=== PATIENT | female | born 1990 | race Caucasian/White ===

== ENCOUNTER 2019-03-08 13:18 | Emergency (ER) | payer OTHER ==
[2019-03-08 14:07] LABS: BILIRUBIN,URINE NEGATIVE (NEGATIVE); GLUCOSE, URINE (UA) NEGATIVE (NEGATIVE); KETONES,URINE (UA) NEGATIVE (NEGATIVE); LEUKOCYTE ESTERASE, URINE NEGATIVE (NEGATIVE); NITRITE,URINE NEGATIVE (NEGATIVE); OCCULT BLOOD,URINE NEGATIVE (NEGATIVE); PROTEIN,URINE NEGATIVE (NEGATIVE); UROBILINOGEN,URINE 0.2 (NORMAL) E.U./dL (NORMAL)
[2019-03-08 14:17] LABS: CLARITY,URINE CLEAR (CLEAR); HCG UR QUAL NEGATIVE
--- NOTE | 2019-03-08 16:03 | ED Physician Documentation ---
PD HPI FEMALE - Stated complaint Stated Complaint: ABD PAIN - Chief complaint Chief Complaint: Abd Pain - History obtained from History obtained from: Patient - History of Present Illness Timing - onset: Today (this morning) Timing - details: Gradual onset, Still present (Worsening through the day. It started periumbilical and is now more to the right lower quadrant area.) Associated symptoms: Abdominal pain. No: Fever, Pelvic pain, Vaginal discharge, Genital sore/lesion, Dysuria, Urinary frequency Contributing factors: No: , Exposed to STD Similar symptoms before: Has not had sx before Recently seen: Not recently seen Review of Systems Constitutional: denies: Fever, Chills, Myalgias Nose: denies: Rhinorrhea / runny nose, Congestion Throat: denies: Sore throat Respiratory: denies: Cough GI: reports: Abdominal Pain, Nausea, Vomiting (once), Diarrhea (couple episodes loose stool today) : denies: Dysuria, Frequency Skin: denies: Rash, Lesions Musculoskeletal: denies: Neck pain, Back pain Neurologic: denies: Generalized weakness, Focal weakness, Numbness, Near syncope PD PAST MEDICAL HISTORY - Past Medical History Past Medical History: Yes Cardiovascular: None Respiratory: None Neuro: None GI: None FLORAL MERCHANDISER: None : None HEENT: None Psych: None Musculoskeletal: None Derm: None - Past Surgical History Past Surgical History: Yes /FLORAL MERCHANDISER: section - Present Medications Home Medications: Ambulatory Orders Medication Instructions Recorded Confirmed Naproxen 375 mg PO BID #15 tablet 03/08/19 Ondansetron Odt [Zofran] 4 mg TL Q6H PRN #10 tablet 03/08/19 Oxycodone HCl/Acetaminophen 1 each PO Q6H PRN #14 tablet 03/08/19 [Percocet 5-325 mg Tablet] - Allergies Allergies/Adverse Reactions: Allergies Allergy/AdvReac Type Severity Reaction Status Date / Time No Known Drug Allergies Allergy Verified 03/08/19 13:41 - Social History Does the pt smoke?: No Smoking Status: Never smoker Does the pt drink ETOH?: Yes Does the pt have substance abuse?: No - Immunizations Immunizations are current?: Yes - POLST Patient has POLST: No PD ED PE NORMAL - Vitals Vital signs reviewed: Yes - General General: Alert and oriented X 3, Well developed/nourished, Other (seems some uncomfortable. ) - HEENT HEENT: Pharynx benign - Neck Neck: Supple, no meningeal sign, No adenopathy - Cardiac Cardiac: RRR, No murmur - Respiratory Respiratory: Clear bilaterally - Abdomen Abdomen: Normal bowel sounds, Soft, Non distended, No organomegaly, Other (tender with guarding RLQ and periumbilical (at [place] mostly) with some percussion tender at that area. No rebound. ) Results - Vitals Vitals: Oxygen O2 Source Room air - Labs Labs: Laboratory Tests 03/08/19 03/08/19 03/08/19 14:00 16:45 16:45 WBC 7.7 RBC 4.24 Hgb 11.1 L Hct 34.7 L MCV 81.7 MCH 26.3 L MCHC 32.1 RDW 16.0 H Plt Count 252 MPV 9.0 Neut # (Auto) 5.2 Lymph # (Auto) 2.0 [place] # (Auto) 0.5 Eos # (Auto) 0.0 Baso # (Auto) 0.0 Absolute Nucleated RBC 0.00 Nucleated RBC % 0.0 Sodium 137 Potassium 3.7 Chloride 102 Carbon Dioxide 25 Anion Gap 10.0 BUN 10 Creatinine 0.7 Estimated GFR (MDRD) 99 Glucose 89 Calcium 8.8 Total Bilirubin 1.0 AST 18 ALT 19 Alkaline Phosphatase 52 Total Protein 8.0 Albumin 4.2 Globulin 3.8 Albumin/Globulin Ratio 1.1 Lipase 24 Urine Color YELLOW Urine Clarity CLEAR Urine pH 6.0 Ur Specific [place] 1.020 Urine Protein NEGATIVE Urine Glucose (UA) NEGATIVE Urine Ketones NEGATIVE Urine Occult Blood NEGATIVE Urine Nitrite NEGATIVE Urine Bilirubin NEGATIVE Urine Urobilinogen 0.2 (NORMAL) Ur Leukocyte Esterase NEGATIVE Ur Microscopic Review NOT INDICATED Urine Culture Comments NOT INDICATED Urine HCG, Qual NEGATIVE - Rads (name of study) abd/pelvic CT Radiology: Prelim report reviewed (Normal appendix and gallbladder. No acute cause of the pain), See rad report PD MEDICAL DECISION MAKING - ED course Complexity details: reviewed results, re-evaluated patient, considered di fferential (seems highly suspicious for appendicitis. Not really low as would expect for vaginal or .), d/w patient Departure - Departure Disposition: 01 Home, Self Care Clinical Impression: Abdominal pain Qualifiers: Abdominal location: right lower quadrant Qualified Code(s): R10.31 - Right lower quadrant pain Clinical Impression: (Ruled Out): Appendicitis Condition: Stable Record reviewed to determine appropriate education?: Yes Instructions: ED Abdominal Pain Unkn Cause Prescriptions: Naproxen 375 mg PO BID #15 tablet Ondansetron Odt [Zofran] 4 mg TL Q6H PRN #10 tablet PRN Reason: Nausea / Vomiting Oxycodone HCl/Acetaminophen [Percocet 5-325 mg Tablet] 1 each PO Q6H PRN #14 tablet PRN Reason: pain Comments: The cause of your pain is not clearly defined. The CT scan did show that your appendix and gallbladder are normal. There is no obvious acute cause of the pain visible. Certainly they can be intestinal irritation and inflammation that can cause this and typically would be transient, meaning just for a day or 2. Recheck if your pain persists over couple more days or if you are having increasing symptoms overall. He is some naproxen anti-inflammatory twice daily. At ondansetron for nausea and Tylenol or Percocet if needed for pain. Again recheck if not improved over the next couple of days. Discharge Date/Time: 03/08/19 19:26
[2019-03-08] MEDS ORDERED: SODIUM CHLORIDE 0.9% 1,000 ML IV ONE (16:19)
[2019-03-08] MEDS ORDERED: ONDANSETRON 4 MG/2 ML VIAL IVP STA (16:19)
[2019-03-08] MEDS ORDERED: MORPHINE 10 MG/ML VIAL IVP STA (16:19)
[2019-03-08] MEDS ORDERED: IOVERSOL 320 100 ML VIAL IVP ONE ×2 (16:29→18:34)
[2019-03-08 16:59] LABS: BASOPHILS % (AUTO) 0.6 %; EOSINOPHILS % (AUTO) 0.5 %; HGB - HEMOGLOBIN 11.1 g/dL (12.0-16.0); LYMPHOCYTES % (AUTO) 26.1 %; MEAN CORPUSCULAR HEMOGLOBIN 26.3 pg (27.0-31.0); MEAN CORPUSCULAR HGB CONC 32.1 g/dL (32.0-36.0); MEAN CORPUSCULAR VOLUME 81.7 fL (81.0-99.0); MONOCYTES # (AUTO) 0.5 10^3/uL (0.0-1.0); MONOCYTES % (AUTO) 6.1 %; NEUTROPHILS # (AUTO) 5.2 10^3/uL (1.5-6.6); NEUTROPHILS % (AUTO) 66.7 %; PLT - PLATELET COUNT 252 10^3/uL (130-450); RED BLOOD COUNT 4.24 10^6/uL (4.20-5.40); WHITE BLOOD COUNT 7.7 x10^3/uL (4.8-10.8)
[2019-03-08 17:12] LABS: ALBUMIN 4.2 g/dL (3.2-5.5); ALBUMIN/GLOBULIN RATIO 1.1 (1.0-2.2); CALCIUM 8.8 mg/dL (8.5-10.3); CREATININE 0.7 mg/dL (0.4-1.0)
[2019-03-08] MEDS ORDERED: HYDROmorphone 1 MG/ML CARPUJECT IVP STA (18:06)
--- NOTE | 2019-03-08 18:46 | CT Report ---
Reason: RLQ abd pain onset this morning. Procedure Date: 03/08/2019 Accession Number: [id number] / [id number] Procedure: CT - Abdomen/Pelvis W CPT Code: FULL RESULT: EXAM: CT ABDOMEN AND PELVIS EXAM DATE: 03/08/2019 05:52 PM. CLINICAL HISTORY: RLQ abd pain onset this morning. COMPARISONS: None. TECHNIQUE: Routine helical CT imaging was performed through the abdomen and pelvis. IV contrast: 100 cc Optiray 320. Enteric contrast: No. Reconstructions: Coronal and sagittal. In accordance with CT protocol optimization, one or more of the following dose reduction techniques were utilized for this exam: automated exposure control, adjustment of mA and/or KV based on patient size, or use of iterative reconstructive technique. FINDINGS: Lung Bases: Unremarkable. Liver: Normal. No masses. Gallbladder/Bile Ducts: Unremarkable. Spleen: Normal. Pancreas: Normal. Adrenal Glands: Normal. Kidneys: Normal. No masses or hydronephrosis. Peritoneal Cavity/Bowel: Normal. No free fluid, free air or adenopathy. No masses or acute inflammatory process. The appendix is well visualized and normal. Pelvic Organs: Collapsing left ovarian cyst measuring about 2.5 cm.. The bladder and visualized pelvic organs are within normal limits. Vasculature: No aneurysms or other significant abnormality. Bones: No significant abnormality. Other: None. IMPRESSION: Essentially negative study. Normal appendix. RADIA
[2019-03-08] MEDS ORDERED: KETOROLAC 30 MG/ML VIAL IVP STA (19:03)
[2019-03-08 19:16] VITALS: BP 118/78
== END 2019-03-08 19:26 | disposition home or self-care (01) ==
LOC: ED 13:18
DX: R10.31 Right lower quadrant pain (principal); R10.33 Periumbilical pain
CPT/HCPCS: 36415; 74177; 80053; 81003; 81025; 83690; 85025; 96361; 96374; 96375; 99283; 99284; J1170; Q9967; 81001; 87086

== ENCOUNTER 2021-02-05 09:33 | Outpatient (CLI) | payer OTHER ==
[2021-02-05 09:50] LABS: BASOPHILS % (AUTO) 0.7 %; EOSINOPHILS # (AUTO) 0.1 10^3/uL (0.0-0.7); EOSINOPHILS % (AUTO) 1.1 %; HCT - HEMATOCRIT 44.2 % (37.0-47.0); HGB - HEMOGLOBIN 14.9 g/dL (12.0-16.0); LYMPHOCYTES # (AUTO) 2.3 10^3/uL (1.5-3.5); MEAN CORPUSCULAR HGB CONC 33.7 g/dL (32.0-36.0); MEAN CORPUSCULAR VOLUME 97.8 fL (81.0-99.0); MONOCYTES # (AUTO) 0.3 10^3/uL (0.0-1.0); MONOCYTES % (AUTO) 5.5 %; NEUTROPHILS # (AUTO) 2.9 10^3/uL (1.5-6.6); NEUTROPHILS % (AUTO) 51.5 %; PLT - PLATELET COUNT 249 10^3/uL (130-450); RED BLOOD COUNT 4.52 10^6/uL (4.20-5.40); WHITE BLOOD COUNT 5.6 x10^3/uL (4.8-10.8)
== END 2021-02-05 09:34 | disposition home or self-care (01) ==
LOC: LAB 09:33
PROVIDERS: ATTEND Obstetrics & Gynecology
DX: Z01.812 Encounter for preprocedural laboratory examination (principal); N93.8 Other specified abnormal uterine and vaginal bleeding; Z20.822 Contact with and (suspected) exposure to COVID-19
CPT/HCPCS: 36415; 85025

== ENCOUNTER 2021-02-07 08:18 | Day surgery (SDC) | payer OTHER ==
[~2021-02-07 08:18] MED LIST: ACETAMINOPHEN 1,000 MG/100 ML 100 ML IV ONE; CELECOXIB 100 MG CAPSULE PO ONE; GABAPENTIN 400 MG CAPSULE ONE
[2021-02-07 08:49] LABS: HCG UR QUAL NEGATIVE
--- NOTE | 2021-02-07 08:50 | ANESTHESIA ---
Pre-Anesthesia VS, & Labs - Diagnosis dysfunctional uterine bleeding - Procedure Hysteroscopy Myosure IUD removal Height: 5 ft 5 in Weight (kg): 80.5 kg Body Mass Index: 29.5 BMI Classification: Overweight - NPO >8 hours - Is Patient ?: No - Lab Results Current Lab Results: Laboratory Tests 02/07/21 08:41: POC Whole Bld Glucose 98 Lab results reviewed: Yes Home Medications and Allergies Home Medications: Ambulatory Orders Chromium Picolinate 200 mcg PO DAILY 01/31/21 Folic Acid 1 mg PO DAILY 01/31/21 Medroxyprogesterone Acetate [Provera] 10 mg PO DAILY 01/31/21 Chromium Picolinate 200 mcg PO DAILY 01/31/21 Folic Acid 1 mg PO DAILY 01/31/21 Medroxyprogesterone Acetate [Provera] 10 mg PO DAILY 01/31/21 Allergies/Adverse Reactions: Allergies Allergy/AdvReac Type Severity Reaction Status Date / Time No Known Drug Allergies Allergy Verified 03/08/19 13:41 Anes History & Medical History - Anesthetic History Anesthesia Complications: reports: Post-Operative Nausea/Vomiting Family history of Anesthesia Complications: Denies Family history of Malignant Hyperthermia: Denies (no problems since moving here to [place]) - Medical History Cardiovascular: reports: None Pulmonary: reports: Asthma Gastrointestinal: reports: None Urinary: reports: None Neuro: reports: None Musculoskeletal: reports: None Endocrine/Autoimmune: reports: None Blood Disorders: reports: None Skin: reports: None Smoking Status: Never smoker - Surgical History Eyes Ears Nose Throat (EENT): reports: Myringotomy (tubes) Gynecologic: reports: section, Other Exam General: Alert, Oriented x3, Cooperative, No acute distress Dental: WNL Mouth Openin Fingerbreadth Neck Mobility: Normal Mallampati classification: I Respiratory: Lungs clear, Normal breath sounds, No respiratory distress, No accessory muscle use Cardiovascular: Regular rate, Normal S1, Normal S2, No murmurs Plan Anesthesia Type: General Consent for Procedure(s) Verified and Reviewed: No Code Status: Attempt Resuscitation ASA classification: 2-Mild systemic disease Is this case an emergency?: No
[2021-02-07] MEDS ORDERED: HYDROmorphone 0.5 MG/0.5 ML SYRINGE IVP PRN (08:59)
[2021-02-07] MEDS ORDERED: ONDANSETRON 4 MG/2 ML VIAL IVP PRN (08:59)
[2021-02-07] MEDS ORDERED: ePHEDrine 50 MG/ML VIAL IVP PRN (08:59)
[2021-02-07] MEDS ORDERED: NALOXONE 0.4 MG/ML VIAL IVP PRN (08:59)
[2021-02-07] MEDS ORDERED: fentaNYL 100 MCG/2 ML VIAL IVP PRN (08:59)
[2021-02-07] MEDS ORDERED: MORPHINE 2 MG/ML CARPUJECT IVP PRN (08:59)
[2021-02-07] MEDS ORDERED: METOCLOPRAMIDE 10 MG/2 ML VIAL IVP PRN (08:59)
[2021-02-07] MEDS ORDERED: ATROPINE ABBOJECT 1 MG/10 ML SYRINGE IVP PRN (08:59)
[2021-02-07] MEDS ORDERED: LACTATED RINGERS 1,000 ML IV SCH (09:00)
[2021-02-07] MEDS ORDERED: SCOPOLAMINE PATCH TOP SCH (09:00)
[2021-02-07] MEDS ORDERED: LIDOCAINE 2%-EPI 1:100000 20 ML MDV ONE (11:04)
[2021-02-07] MEDS ORDERED: BUPIVACAINE 0.5% PF 30 ML VIAL ONE (11:04)
--- NOTE | 2021-02-07 11:04 | OPERATIVE REPORT ---
Operative Report - General Procedure Date: 02/07/21 Planned Procedure: Mirena IUD removal with retained strings Hysteroscopy D&C with polypectomy Novasure endometrial ablation Pre-Op Diagnosis: Dyfunctional uterine bleeding, retained IUD strings Procedure Performed: Mirena IUD removal Hysteroscopy D&C with polypectomy Novasure endometrial ablation Post Op Diagnosis: Same - Procedure Note Primary Surgeon: Doreen Ovalle MD Anesthesia Provider: Samantha Mcintosh CRNA Anesthesia Technique: General LMA Pathology: uterine contents IV Fluids (mL): 1,000 Estimated Blood Loss (mL): 5 Urine Output (mL): 20 (in and out catheterization) Indications: The patient is a 30-year-old with dysfunctional uterine bleeding, here for IUD removal, hysteroscopy D&C, and endometrial ablation. The patient has a longstanding history of dysfunctional uterine bleeding. For about 18 months, she has had very heavy bleeding. She has had an endometrial biopsy with Dr. Palacios at the [facility] that was normal. Bleeding has never stopped and it has continued on and off. She does not have regular cycling. She has had Mirena IUD in place. She continued to bleed daily. On September of 2020, her bleeding increased with the Mirena in place. She had a pelvic ultrasound that showed the Mirena was adequately positioned and there were no fibroids or other structural abnormalities that might be contributing to her bleeding. She was then started on Provera to control her bleeding. Initially, she was on 10 mg p.o. daily for 5 days and then decreased to 5 mg daily for 15 days. The bleeding actually worsened when she decreased her dosage and now she has been taking 10 mg for 30 days. Her bleeding has slowed down and "kind of stopped" in the last week. However, her PCP is uncomfortable with her using Provera on a daily basis in addition to the Mirena and is recommending surgical intervention. She notes that her past medical history is significant for anemia, which has improved since she has been using the Mirena. She also had a folic acid deficiency. Reviewed options and patient wants to proceed with endometrial ablation. is undergoing a vasectomy. Findings: Normal uterus cavity with bilateral tubal ostia visualized Complications: None - Other Other Information/Narrative: Risks benefits and alternatives to the procedure were reviewed. Consent was again confirmed. Patient was taken to the operating room where she underwent general anesthesia. She was positioned in dorsolithotomy position with legs resting in yellowfin stirrups. She was prepped and draped in the usual sterile fashion. Preoperative antibiotics were not indicated. Preoperative checklist was performed. Exam under anesthesia was performed. Speculum was placed in the vagina and the cervix was visualized. Single-tooth tenaculum was placed at the anterior cervical lip. Paracervical block was administered using a total of 20 cc of 2% lidocaine mixed with 0.5% bupivicaine with epinephrine was injected at the 4:00 and 8:00 positions lateral to the portio of the cervix. The IUD hook was used to draw out the strings of the IUD. The strings were then grasped with ring forceps and the IUD was removed with gentle traction on the strings. It was examined and found to be intact. The cervical os was serially dilated with Hegar dilators to accommodate the caliber of the diagnostic hysteroscope. Uterus sounded to 9.5 cm. The hysteroscope was inserted and findings were noted as above. The hysteroscopic morcellator was inserted through the operative port. The intrauterine polyps were morcellated under direct visualization. Uterine cavity was smooth at close of the procedure. Hysteroscope was removed. The Novasure endometrial ablation instrument was inserted into the uterus. The uterus had sounded to 9.5 cm, the cervical length was 4 cm. The uterine cavity was 5.5 cm in length and 4.5 cm in width. The assessment of integrity of the uterine cavity was passed. The Novasure fired at 136 peace for 114 seconds. All instruments were removed from the uterus. Tenaculum was removed. [place] m sites were noted to be hemostatic. All instruments were removed from the vagina. Procedure was well-tolerated without complication. Fluid deficit: 115 cc NS
[2021-02-07] MEDS ORDERED: MIDAZOLAM 2 MG/2 ML VIAL ONE (11:15)
[2021-02-07] MEDS ORDERED: fentaNYL 100 MCG/2 ML VIAL ONE (11:15)
[2021-02-07] MEDS ORDERED: DEXAMETHASONE 4 MG/ML VIAL ONE (11:17)
[2021-02-07] MEDS ORDERED: KETOROLAC 30 MG/ML VIAL ONE (11:17)
[2021-02-07] MEDS ORDERED: ONDANSETRON 4 MG/2 ML VIAL ONE (11:17)
[2021-02-07] MEDS ORDERED: PROPOFOL 200 MG/20 ML VIAL IVP ONE (11:17)
[2021-02-07] MEDS ORDERED: LIDOCAINE-MPF 2% 5 ML VIAL ONE (11:17)
[2021-02-07] MEDS ORDERED: BUPIVACAINE 0.5% PF 30 ML VIAL INFIL ONE ×2 (11:45)
[2021-02-07] MEDS ORDERED: LIDOCAINE 2%-EPI 1:100000 20 ML MDV SUBQ ONE ×2 (11:47)
[2021-02-07] MEDS ORDERED: oxyCODONE 5 MG TABLET PO PRN (12:19)
[2021-02-07 12:39] VITALS: BP 117/78
--- NOTE | 2021-02-07 14:23 | ANESTHESIA POST OP EVALUATION ---
Anesthesia Post Eval - Post Anesthesia Eval Vitals: Last Vital Signs Temp 36.2 C L 02/07/21 12:12 Pulse 63 02/07/21 12:39 Resp 12 02/07/21 12:39 BP 117/78 02/07/21 12:39 Pulse Ox 100 02/07/21 12:39 CV Function Including HR & BP: positive: Stable Pain Control: positive: Satisfactory Nausea & Vomiting: positive: Negative Mental Status: positive: Baseline Respiratory Status: Airway Patent Hydration Status: Satisfactory Anesthesia Complications: positive: None
== END 2021-02-07 08:19 | disposition home or self-care (01) ==
LOC: SDS 08:18
PROVIDERS: ATTEND Obstetrics & Gynecology
PROC: 0UB98ZZ Excision of Uterus, Via Natural or Artificial Opening Endoscopic (ICD-10-PCS; principal; 2021-02-07 09:15)
DX: N84.0 Polyp of corpus uteri (principal); E53.8 Deficiency of other specified B group vitamins; J45.909 Unspecified asthma, uncomplicated; E66.3 Overweight; Z68.29 Body mass index [BMI] 29.0-29.9, adult; Z30.432 Encounter for removal of intrauterine contraceptive device; Z79.3 Long term (current) use of hormonal contraceptives
CPT/HCPCS: 58558; 81025; A9270; J0131; J3490

== ENCOUNTER 2022-08-01 08:00 | Outpatient (CLI) | payer OTHER ==
[2022-08-01 18:46] LABS: BILIRUBIN,URINE NEGATIVE (NEGATIVE); GLUCOSE, URINE (UA) NEGATIVE (NEGATIVE); KETONES,URINE (UA) NEGATIVE (NEGATIVE); LEUKOCYTE ESTERASE, URINE LARGE (NEGATIVE); NITRITE,URINE NEGATIVE (NEGATIVE); OCCULT BLOOD,URINE SMALL (NEGATIVE); PROTEIN,URINE NEGATIVE (NEGATIVE); UROBILINOGEN,URINE 0.2 (NORMAL) E.U./dL (NORMAL)
[2022-08-01 18:49] LABS: CLARITY,URINE HAZY (CLEAR)
[2022-08-01 19:24] LABS: BACTERIA,URINE Moderate /HPF (None Seen); SQUAMOUS EPITHELIAL CELL,UR FEW Squamous (<= Few); WBC,URINE >25 /HPF (0-5)
== END 2022-08-01 23:59 | disposition home or self-care (01) ==
LOC: LAB.N 08:00
PROVIDERS: ATTEND Emergency Medicine
DX: R30.0 Dysuria (principal)
CPT/HCPCS: 81001; 87086; 87181